=== PATIENT | male | born 1990 | race Caucasian/White ===

== ENCOUNTER 2021-08-19 09:04 | Inpatient (IN) ==
[2021-08-19] MEDS ORDERED: LORazepam 2 mg VIAL 1 ml IV PUSH ONE ×2 (09:30→09:43)
[2021-08-19] MEDS ORDERED: Lorazepam PYXIS KEY PRN ×3 (09:30→11:32)
[2021-08-19] MEDS ORDERED: Lactated Ringers 1000 ml BAG 1,000 ML IV ONE (09:31)
[2021-08-19 09:42] LABS: ABS Basophils 0.1 10^3/ul (0-0.2); ABS Lymphocytes 2.3 10^3/ul (1.0-4.8); ABS Monocytes 0.8 10^3/ul (0-0.8); Eosinophil % 0.5 %; Hematocrit 53 % (42-52); Hemoglobin 18.9 g/dL (14.0-18.0); Mean Corpuscular HGB Conc 36 g/dL (31-36); Mean Corpuscular Hemoglobin 35 pg (27-31); Mean Corpuscular Volume 99 fL (80-94); Mean Platelet Volume 7.2 fL (7.4-10.4); Nucleated Red Blood Cells % 0.1; Platelet Count 218 10^3/uL (150-450); Red Blood Count 5.35 10^6 /uL (4.18-5.48); Red Cell Distribution Width 14 % (10-15); White Blood Count 8.3 10^3/uL (3.5-10.8)
[2021-08-19 10:01] LABS: Albumin 4.6 g/dL (3.2-5.2); Albumin/Globulin Ratio 1.4 (1-3); Calcium 9.3 mg/dL (8.6-10.3); Globulin 3.2 g/dL (2-4); Magnesium 1.8 mg/dL (1.9-2.7); Phosphorus 2.2 mg/dL (2.5-5.0); Potassium 3.9 mmol/L (3.5-5.0); Total Bilirubin 1.7 mg/dL (0.2-1.0); Total Protein 7.8 g/dL (6.4-8.9)
[2021-08-19] MEDS ORDERED: Magnesium Sulfate IV 1GM/100ML 1 GM/100 ML BAG IV ONE (10:13)
[2021-08-19] MEDS ORDERED: NS 0.9% 1000 ml BAG 1,000 ML IV SCH (11:45)
[2021-08-19 12:33] LABS: Urine Appearance Clear; Urine Bilirubin Negative (Negative); Urine Blood Negative (Negative); Urine Color Yellow; Urine Glucose Negative (Negative); Urine Ketones Negative (Negative); Urine Nitrite Negative (Negative); Urine Protein Negative (Negative); Urine Specific Gravity 1.008 (1.002-1.030); Urine Urobilinogen Negative (Negative)
[2021-08-19 12:44] LABS: Rapid COVID-19 Molecular Undetected (Undetected)
[2021-08-19 13:31] LABS: Urine Benzodiazepine Screen None Detected (None Detect); Urine Cannabinoids Screen Presumptive Positive (None Detect); Urine Opiates Screen None Detected (None Detect)
[2021-08-19] MEDS: LORazepam 2 mg VIAL 1 ml IV PUSH PRN ×3 (13:47→19:45)
[2021-08-19 17:12] LABS: Total Bilirubin 1.7 mg/dL (0.2-1.0)
[2021-08-20] MEDS: Multivitamins/Minerals TAB PO SCH (08:48)
[2021-08-20] MEDS ORDERED: Pneumococcal Vac 23-Polyvalent IM ONE (09:00)
[2021-08-20] MEDS ORDERED: Flu vaccine *QUAD* 2021-22* 0.5 ML SYRINGE IM ONE (09:00)
[2021-08-20] MEDS: LORazepam 2 mg VIAL 1 ml IV PUSH PRN ×2 (10:35→12:39)
[2021-08-20 10:46] LABS: INR 1.05 (0.86-1.15)
[2021-08-20] MEDS ORDERED: Ondansetron 4 mg VIAL 2 MG/ML 2 ml VIAL IV PRN (17:06)
[2021-08-20] MEDS: Nicotine PATCH 7 MG/24 HR PATCH TRANSDERM SCH (17:41)
[2021-08-21] MEDS: LORazepam 2 mg VIAL 1 ml IV PUSH PRN ×3 (06:08→18:20)
[2021-08-21 08:12] LABS: ABS Basophils 0.1 10^3/ul (0-0.2); ABS Eosinophils 0.1 10^3/ul (0-0.6); ABS Lymphocytes 1.9 10^3/ul (1.0-4.8); ABS Neutrophils 7.5 10^3/ul (1.5-7.7); Eosinophil % 0.8 %; Hematocrit 53 % (42-52); Hemoglobin 18.6 g/dL (14.0-18.0); Mean Corpuscular HGB Conc 36 g/dL (31-36); Mean Corpuscular Hemoglobin 35 pg (27-31); Mean Corpuscular Volume 100 fL (80-94); Mean Platelet Volume 7.9 fL (7.4-10.4); Platelet Count 182 10^3/uL (150-450); Red Blood Count 5.25 10^6 /uL (4.18-5.48); Red Cell Distribution Width 14 % (10-15); White Blood Count 10.6 10^3/uL (3.5-10.8)
[2021-08-21 08:29] LABS: Albumin 4.4 g/dL (3.2-5.2); Calcium 9.7 mg/dL (8.6-10.3); Direct Bilirubin 0.5 mg/dL (0.03-0.18); Indirect Bilirubin 1.6 mg/dL (0.3-1.0); Magnesium 1.7 mg/dL (1.9-2.7); Potassium 4.2 mmol/L (3.5-5.0); Total Bilirubin 2.1 mg/dL (0.2-1.0)
[2021-08-21 08:35] LABS: Albumin/Globulin Ratio 1.4 (1-3); Globulin 3.1 g/dL (2-4); Total Protein 7.5 g/dL (6.4-8.9)
[2021-08-21] MEDS: Nicotine PATCH 7 MG/24 HR PATCH TRANSDERM SCH (08:51)
[2021-08-21] MEDS: Multivitamins/Minerals TAB PO SCH (08:52)
[2021-08-21 11:39] LABS: INR 1.04 (0.86-1.15)
[2021-08-22 07:27] LABS: INR 1.04 (0.86-1.15)
[2021-08-22 07:34] LABS: Albumin 4.3 g/dL (3.2-5.2); Albumin/Globulin Ratio 1.3 (1-3); Calcium 9.5 mg/dL (8.6-10.3); Globulin 3.2 g/dL (2-4); Potassium 3.9 mmol/L (3.5-5.0); Total Bilirubin 1.3 mg/dL (0.2-1.0); Total Protein 7.5 g/dL (6.4-8.9)
[2021-08-22] MEDS: Multivitamins/Minerals TAB PO SCH (08:35)
[2021-08-22] MEDS: Nicotine PATCH 7 MG/24 HR PATCH TRANSDERM SCH (08:35)
[2021-08-22 12:16] VITALS: BP 142/92
== END 2021-08-22 12:15 | disposition home or self-care (01) | DRG 897 ==
LOC: ED 09:04 → SUATTDRO 11:46 → EDHOLD 11:46 → MEDTELE 15:00
PROVIDERS: ADMIT Hospitalist; ATTEND Internal Medicine